=== PATIENT | female | born 1940 | race Caucasian/White ===

== ENCOUNTER → 2018-02-05 | Outpatient (CLI) | payer MEDICARE, BC ==
[~2018-02-05] MED LIST: FAMO20TA7 PO; MULT-658 PO; PRAV40TA2 PO; SERT25TA PO; will bring list
[2018-02-05 10:47] LABS: MICROSCOPIC AUTO
== END | disposition home or self-care (01) ==
LOC: STAR 09:26
PROVIDERS: ATTEND Urology
DX: Z01.818 Encounter for other preprocedural examination (principal); N20.0 Calculus of kidney
CPT/HCPCS: 81001; 87086; 93005

== ENCOUNTER 2018-02-10 06:46 | Day surgery (SDC) | payer MEDICARE, BC ==
[~2018-02-10] VITALS: Ht 147.3 cm; Wt 53.0 kg
[~2018-02-10 06:46] MED LIST changes: -FAMO20TA7 PO; -PRAV40TA2 PO
[2018-02-10] MEDS ORDERED: FENTANYL PF 100 MCG/2ML ONE (07:19)
[2018-02-10] MEDS ORDERED: FAMO20TA7 PO (07:20)
[2018-02-10] MEDS ORDERED: PRAV40TA2 PO (07:20)
[2018-02-10] MEDS ORDERED: ONDANSETRON 2MG/ML, 2ML ONE (07:24)
[2018-02-10] MEDS ORDERED: DEXAMETHASONE 4 MG/ML, 1ML ONE (07:24)
[2018-02-10] MEDS ORDERED: CEFAZOLIN 1,000 MG ONE (07:24)
[2018-02-10] MEDS ORDERED: PROPOFOL 10 MG/ML, 20ML ONE (07:24)
[2018-02-10] MEDS ORDERED: LACTATED RINGERS 1,000 ML IV SCH (07:27)
[2018-02-10] MEDS ORDERED: EPHEDRINE 50 MG/ML, 1ML ONE (07:37)
[2018-02-10] MEDS ORDERED: PROCHLORPERAZINE 5 MG/ML, 2ML IM PRN (08:00)
[2018-02-10] MEDS ORDERED: ONDANSETRON ODT 8 MG PO PRN (08:00)
[2018-02-10] MEDS ORDERED: CIPROFLOXACIN/PMX 400MG/200ML 200 ML ONE (08:00)
[2018-02-10] MEDS ORDERED: MORPHINE SULFATE 4 MG/ML, 1ML IVPush PRN (08:00)
[2018-02-10] MEDS ORDERED: ONDANSETRON 2MG/ML, 2ML IV PRN ×2 (08:00→09:30)
[2018-02-10] MEDS ORDERED: ACETAMINOPHEN 325 MG TABLET PO PRN (08:00)
[2018-02-10] MEDS ORDERED: OXYcodone 5 MG/5 ML ORAL.SOL UDC PO PRN (08:00)
[2018-02-10] MEDS ORDERED: FENTANYL PF 100 MCG/2ML IV PRN (08:00)
[2018-02-10] MEDS ORDERED: OXYcodone/APAP 5/325MG TABLET PO PRN (09:30)
[2018-02-10] MEDS ORDERED: OMNIPAQUE 350 MG/ML, 50 ML BOTTLE ONE (09:51)
[2018-02-10] MEDS ORDERED: PHENAZOPYRIDINE 200 MG TABLET PO SCH (10:30)
[2018-02-10] MEDS ORDERED: PHENAZOPYRIDINE 200 MG TABLET ONE (10:32)
[2018-02-10] MEDS ORDERED: morphine SULFATE 10 MG/ML, 1ML ONE (13:16)
== END 2018-02-10 15:00 | disposition home or self-care (01) ==
LOC: OUT 06:46
PROVIDERS: ATTEND Urology
DX: N20.0 Calculus of kidney (principal); K21.9 Gastro-esophageal reflux disease without esophagitis
CPT/HCPCS: 52356; 74420; 82360; 88300; C1758; C1769; C2617; J0690; J0744; J1100; J2405; J2704; J3010; J7120; Q9967

== ENCOUNTER → 2018-08-19 | Outpatient (CLI) | payer MEDICARE ==
[~2018-08-19] MED LIST changes: +FAMO20TA7 PO; +OMNIPAQUE 350 MG/ML, 150 ML BOTTLE ONE; +PRAV40TA2 PO
== END | disposition home or self-care (01) ==
LOC: CFH 13:09
PROVIDERS: ATTEND Family Medicine
DX: K57.30 Diverticulosis of large intestine without perforation or abscess without bleeding (principal); Z90.710 Acquired absence of both cervix and uterus
CPT/HCPCS: 74178; 82565; Q9967

== ENCOUNTER 2018-12-23 09:11 | Outpatient (CLI) | payer MEDICARE ==
[~2018-12-23 09:11] MED LIST changes: -OMNIPAQUE 350 MG/ML, 150 ML BOTTLE ONE
== END 2018-12-23 23:59 | disposition home or self-care (01) ==
LOC: CFH 09:11
PROVIDERS: ATTEND Family Medicine
DX: S09.90XA Unspecified injury of head, initial encounter (principal); N20.0 Calculus of kidney; G31.9 Degenerative disease of nervous system, unspecified; M50.30 Other cervical disc degeneration, unspecified cervical region; X58.XXXA Exposure to other specified factors, initial encounter; Y93.89 Activity, other specified; Y92.89 Other specified places as the place of occurrence of the external cause; Y99.8 Other external cause status
CPT/HCPCS: 70450; 72050; 72110; 74018